=== PATIENT | male | born 1965 | race Two or more races ===

== ENCOUNTER → 2016-08-24 | Outpatient (CLI) | payer OTHER ==
[~2016-08-24] MED LIST: ASPI325T4 PO; DULA1.5P SC; GABAPENTIN PO; METF750T2 PO; MULT-658 PO; NABUMETONE PO; OMEG1CAP48 PO
[2016-08-24 12:38] LABS: PATH.CAST-FLAG NOT PRESENT; SPERM-FLAG NOT PRESENT; SRC-FLAG NOT PRESENT; XTAL-FLAG NOT PRESENT; YLC-FLAG NOT PRESENT
[2016-08-24 12:48] LABS: ASPARTATE AMINO TRANSFERASE 19 U/L (15-37); BLOOD UREA NITROGEN 12 mg/dL (7-18)
== END | disposition home or self-care (01) ==
LOC: STAR 11:24
PROVIDERS: ATTEND Neurological Surgery
DX: Z01.811 Encounter for preprocedural respiratory examination (principal); M51.36 Other intervertebral disc degeneration, lumbar region; M48.06 Spinal stenosis, lumbar region; I10 Essential (primary) hypertension; E11.9 Type 2 diabetes mellitus without complications; R79.1 Abnormal coagulation profile
CPT/HCPCS: 36415; 71020; 80053; 81001; 85025; 85610; 85730; 93005

== ENCOUNTER 2016-09-01 08:31 | Day surgery (SDC) | payer BC, OTHER ==
[2016-08-24 11:44] VITALS: BP 136/98
[~2016-09-01] VITALS: Ht 177.8 cm; Wt 83.0 kg
[~2016-09-01 08:31] MED LIST changes: +BACITRACIN 50,000 UNIT ONE; +BUPIVACAINE/PF 0.5% ONE; +BUPIVACAINE/PF-EPI 0.5% 1:200K ONE; +FENTANYL PF 250 MCG/5ML ONE; +MIDAZOLAM 1 MG/ML, 2ML ONE; +THROMBIN 5,000 UNIT VIAL TP ONE; +VANCOMYCIN 1,000 MG ONE
[2016-09-01] MEDS ORDERED: LACTATED RINGERS 1,000 ML IV SCH ×2 (09:03→11:50)
[2016-09-01] MEDS ORDERED: NAPR220C2 PO (09:05)
[2016-09-01 09:06] VITALS: BP 136/98
[2016-09-01] MEDS ORDERED: LIDOCAINE 1%, 2ML ONE (09:15)
[2016-09-01] MEDS ORDERED: LIDOCAINE 1%, 2ML SQ PRN (09:30)
[2016-09-01] MEDS ORDERED: TEMPLATE NON-FORMULARY MED. (Dulaglutide (Trulicity) 1.5 MG) SC SCH (12:00)
[2016-09-01] MEDS ORDERED: OXYcodone/APAP 5/325MG TABLET PO PRN (12:00)
[2016-09-01] MEDS ORDERED: ONDANSETRON 2MG/ML, 2ML IVPush PRN ×2 (12:00→13:00)
[2016-09-01] MEDS ORDERED: morphine SULFATE 10 MG/ML, 1ML IVPush PRN (12:00)
[2016-09-01] MEDS ORDERED: ACETAMINOPHEN 650 MG/20.3 ML UDC ONE (12:26)
[2016-09-01] MEDS ORDERED: OXYcodone 5 MG/5 ML ORAL.SOL UDC ONE (12:26)
[2016-09-01] MEDS ORDERED: MIDAZOLAM 1 MG/ML, 2ML IV PRN (13:00)
[2016-09-01] MEDS ORDERED: ALBUTEROL/IPRATROPIUM 2.5MG/0.5MG, 3 ML NPPB PRN (13:00)
[2016-09-01] MEDS ORDERED: HYDROmorphone 1 MG/ML, 1ML IV PRN (13:00)
[2016-09-01] MEDS ORDERED: ACETAMINOPHEN 325 MG TABLET PO PRN (13:00)
[2016-09-01] MEDS ORDERED: METOCLOPRAMIDE 5 MG/ML, 2ML IV PRN (13:00)
[2016-09-01] MEDS ORDERED: hydrALAzine 20 MG/ML, 1ML IV PRN (13:00)
[2016-09-01] MEDS ORDERED: OXYcodone 5 MG/5 ML ORAL.SOL UDC PO PRN (13:00)
[2016-09-01] MEDS ORDERED: FENTANYL PF 100 MCG/2ML IV PRN (13:00)
[2016-09-01] MEDS ORDERED: PROMETHAZINE 25 MG/ML, 1ML IV PRN (13:00)
[2016-09-01] MEDS ORDERED: LABETALOL 5MG/ML, 20ML IV PRN (13:00)
[2016-09-01] MEDS ORDERED: MEPERIDINE/PF 25MG/0.5ML IVPush PRN (13:00)
[2016-09-01] MEDS ORDERED: PROPOFOL 10 MG/ML, 20ML ONE (16:29)
[2016-09-01] MEDS ORDERED: DEXAMETHASONE 4 MG/ML, 1ML ONE (16:29)
[2016-09-01] MEDS ORDERED: PROPOFOL 10 MG/ML, 50ML ONE (16:29)
[2016-09-01] MEDS ORDERED: EPHEDRINE 50 MG/ML, 1ML ONE (16:29)
[2016-09-01] MEDS ORDERED: CEFAZOLIN 1,000 MG ONE (16:29)
[2016-09-01] MEDS ORDERED: PHENYLEPHRINE 10 MG/ML ONE (16:29)
[2016-09-01] MEDS ORDERED: ONDANSETRON 2MG/ML, 2ML ONE (16:29)
[2016-09-01] MEDS ORDERED: SUCCINYLCHOLINE 20 MG/ML, 10ML ONE (16:29)
[2016-09-01] MEDS ORDERED: GABAPENTIN PO SCH (21:00)
[2016-09-01] MEDS ORDERED: NABUMETONE PO SCH (21:00)
[2016-09-02] MEDS ORDERED: TEMPLATE NON-FORMULARY MED. (Metformin Hcl** (Metformin Hcl Er**) 750 MG) PO SCH (09:00)
== END 2016-09-01 15:30 | disposition home or self-care (01) ==
LOC: OUT 08:31
PROVIDERS: ATTEND Neurological Surgery
DX: M51.17 Intervertebral disc disorders with radiculopathy, lumbosacral region (principal); M48.07 Spinal stenosis, lumbosacral region; E11.9 Type 2 diabetes mellitus without complications
CPT/HCPCS: 63056; 63057; 72100; 82962; J0330; J0690; J1100; J2250; J2370; J2405; J2704; J3010; J3370; J3490